=== PATIENT | female | born 1940 | race Caucasian/White ===

== ENCOUNTER 2016-08-23 09:06 | Day surgery (SDC) ==
[2016-08-23 09:28] LABS: MANUAL DIFF NEEDED? NO
[2016-08-23 09:47] LABS: BASO% 0.2 % (0.0-0.8); EOS# 0.14 X1000 (0.0-0.7); EOS% 1.6 % (0.0-10.0); HEMATOCRIT 41.2 % (37.0-47.0); HEMOGLOBIN 13.6 g/dL (12.0-16.0); IMM GRAN# 0.02 X1000 (0.0-0.04); IMM GRAN% 0.2 % (0.0-0.5); LYMPH# 2.06 X1000 (1.2-3.4); LYMPH% 23.4 % (20.5-51.1); MCH 30.5 PG (27-31); MCV 92.4 FL (81-99); MONO# 0.49 X1000 (0.11-0.59); MONO% 5.6 % (1.7-9.3); MPV 11.7 FL (7.4-10.4); PLT 201 X1000 (130-400); RBC 4.46 XMIL (4.2-5.4)
[2016-08-23 10:14] LABS: INR 1.03; PROTIME 10.5 Seconds (9.2-11.7)
[2016-08-23] MEDS ORDERED: NS 250 ML ONE ×2 (11:35→12:44)
[2016-08-23] MEDS ORDERED: ROCEPHIN 2 GM/NS 50 ML IV ONE (12:30)
[2016-08-23] MEDS ORDERED: ROCEPHIN 2 GM/NS 50 ML ONE (12:44)
[2016-08-23] MEDS ORDERED: VANCOMYCIN 1,100 MG in NS 250 ML IV ONE (13:00)
== END 2016-08-23 15:25 | disposition home or self-care (01) ==
LOC: INF 09:06
PROVIDERS: ATTEND Internal Medicine
DX: M86.072 Acute hematogenous osteomyelitis, left ankle and foot (principal); Z79.899 Other long term (current) drug therapy
CPT/HCPCS: 36569; 82565; 85025; 85610; 96365; 96367; J0696; J3370; J7050